=== PATIENT | female | born 1990 | race Two or more races ===

== ENCOUNTER 2020-05-25 10:52 | Outpatient (REF) | payer OTHER, SELFPAY ==
[2020-05-26 13:54] LABS: CT PCR NOT DETECTED (Not Detect.); NG PCR NOT DETECTED (Not Detect.)
[2020-05-30 15:57] LABS: HPV mRNA E6/E7 rflx Not Detected (Not Detected)
== END 2020-05-25 10:53 | disposition home or self-care (01) ==
LOC: HO.LAB 10:52
PROVIDERS: Visit Provider Advanced Practice Midwife
DX: Z01.419 Encounter for gynecological examination (general) (routine) without abnormal findings (principal); Z11.3 Encounter for screening for infections with a predominantly sexual mode of transmission; Z11.51 Encounter for screening for human papillomavirus (HPV); Z20.2 Contact with and (suspected) exposure to infections with a predominantly sexual mode of transmission; Z98.890 Other specified postprocedural states; Z87.42 Personal history of other diseases of the female genital tract
CPT/HCPCS: 87491; 87591; 87624; 87625; 88142

== ENCOUNTER 2020-06-08 11:05 | Outpatient (REF) | payer OTHER, SELFPAY ==
--- NOTE | 2020-06-08 11:18 | MM_ITS ---
EXAMINATION: MM DIAGNOSTIC DIGITAL BREAST TOMOSYNTHESIS, BILATERAL US TARGETED BREAST, LEFT US TARGETED BREAST, RIGHT CLINICAL INFORMATION: Bilateral palpable lumps. The lifetime risk of breast cancer based on the Tyrer-Cuzick Model is 7.4%. COMPARISON: Mammography: None. TECHNIQUE: Digital breast tomosynthesis is performed in both the craniocaudal and mediolateral oblique views along with computer-aided detection (CAD). Synthesized 2D images are generated from the tomosynthesis. Targeted bilateral breast ultrasound. FINDINGS: The breasts are extremely dense, which lowers the sensitivity of mammography (ACR BI-RADS breast composition Category d). There are no significant masses, abnormal calcifications, or other abnormalities. Targeted breast ultrasound bilaterally did not demonstrate any abnormal cystic or solid masses. No region of abnormal distal sound shadowing is seen. A large amount of dense breast parenchyma is present. Results are provided to the patient at time of visit by the technologist. MM/MM tomosynthesis diagnostic BI IMPRESSION: No specific mammographic or ultrasound evidence to suggest malignancy. ASSESSMENT: BI-RADS 1: Negative RECOMMENDATION: Clinical management. This patient's information was entered into a reminder system with a target due date for their next mammogram.
== END 2020-06-08 11:06 | disposition home or self-care (01) ==
LOC: HO.MAMMO 11:05
PROVIDERS: Visit Provider Advanced Practice Midwife
DX: N63.20 Unspecified lump in the left breast, unspecified quadrant (principal); N63.10 Unspecified lump in the right breast, unspecified quadrant
CPT/HCPCS: 76642; 77062; 77066

== ENCOUNTER 2020-11-01 11:16 | Outpatient (REF) | payer OTHER, SELFPAY ==
[2020-11-01 12:24] LABS: MANUAL DIFF FLAG NO
[2020-11-01 12:35] LABS: Appearance Urine HAZY; Color Urine YELLOW; Glucose Urine UA NEG (NEG); Leukocyte Esterase Urine NEG (NEG); Nitrite Urine NEG (NEG); PH 5.5 (5.0-8.0); Specific Gravity - Urine >= 1.030 (1.005-1.025); Urine Blood NEG (NEG); Urine Ketones NEG (NEG); Urine Protein NEG (NEG-TRACE)
[2020-11-01 12:42] LABS: Basophils Percent Auto 0.3 % (0-2); Eosinophils Percent Auto 0.3 % (0-4); Hematocrit 37.6 % (37-47); Hemoglobin 12.6 g/dl (12.0-16.0); Lymphocytes Percent Auto 35.3 % (20-40); Mean Corpuscular HGB Conc 33.5 g/dl (31.0-35.0); Mean Corpuscular Hemoglobin 29.7 pg (27.0-33.0); Mean Corpuscular Volume 88.7 fL (80-98); Mean Platelet Volume 10.9 fL (9.4-12.3); Monocytes Absolute Auto 0.3 X10*3/uL (0.1-1.2); Monocytes Percent Auto 10.8 % (2-11); Neutrophils Absolute Auto 1.5 X10*3/uL (2.0-8.3); Neutrophils Percent Auto 53.3 % (45-73); Platelet Count 237 X10*3/uL (160-400); Red Blood Count 4.24 X10*6/uL (4.20-5.50); Red Cell Distribution Width 11.9 % (11.0-16.0); White Blood Count 2.9 X10*3/uL (4.8-10.8)
[2020-11-01 12:58] LABS: Anion Gap 10 (12-20); Blood Urea Nitrogen 11 mg/dL (9-16); Calcium 9.5 mg/dL (8.4-10.2); Carbon Dioxide 24 mmol/L (22-29); Chloride 109 mmol/L (96-108); Cholesterol 151 mg/dL; Estimated Glomerular Filt Rate > 60; Glucose Random 103 mg/dL (60-115); Sodium 139 mmol/L (135-145)
[2020-11-01 13:56] LABS: Vitamin B12 361 pg/mL (200-900)
== END 2020-11-01 11:17 | disposition home or self-care (01) ==
LOC: HO.10HDL 11:16
PROVIDERS: Visit Provider Internal Medicine
DX: N20.0 Calculus of kidney (principal); R53.83 Other fatigue; R63.4 Abnormal weight loss
CPT/HCPCS: 36415; 80048; 81003; 82465; 82607; 84443; 85025

== ENCOUNTER 2021-05-27 13:48 | Outpatient (REF) | payer OTHER, SELFPAY ==
[2021-05-28 05:32] LABS: CT PCR NOT DETECTED (Not Detect.); NG PCR NOT DETECTED (Not Detect.)
== END 2021-05-27 13:49 | disposition home or self-care (01) ==
LOC: HO.LAB 13:48
PROVIDERS: Visit Provider Advanced Practice Midwife
DX: Z01.419 Encounter for gynecological examination (general) (routine) without abnormal findings (principal); Z20.2 Contact with and (suspected) exposure to infections with a predominantly sexual mode of transmission; Z87.42 Personal history of other diseases of the female genital tract; Z98.890 Other specified postprocedural states
CPT/HCPCS: 87491; 87591

== ENCOUNTER 2022-02-11 09:23 | Outpatient (REF) | payer OTHER, SELFPAY ==
[2022-02-11 12:21] LABS: HCG Quantitative 200 mIU/mL
== END 2022-02-11 09:24 | disposition home or self-care (01) ==
LOC: HO.LAB 09:23
PROVIDERS: PCP Internal Medicine; Visit Provider Advanced Practice Midwife
DX: Z32.01 Encounter for pregnancy test, result positive (principal)
CPT/HCPCS: 36415; 84702; 99212

== ENCOUNTER 2022-02-13 11:37 | Outpatient (REF) | payer OTHER, SELFPAY ==
[2022-02-13 13:00] LABS: HCG Quantitative 277 mIU/mL
== END 2022-02-13 11:38 | disposition home or self-care (01) ==
LOC: HO.LAB 11:37
PROVIDERS: PCP Internal Medicine; Visit Provider Advanced Practice Midwife
DX: Z32.01 Encounter for pregnancy test, result positive (principal)
CPT/HCPCS: 36415; 84702

== ENCOUNTER 2022-02-15 10:04 | Outpatient (REF) | payer OTHER, SELFPAY ==
[2022-02-15 10:55] LABS: HCG Quantitative 359 mIU/mL
== END 2022-02-15 10:05 | disposition home or self-care (01) ==
LOC: HO.LAB 10:04
PROVIDERS: PCP Internal Medicine; Visit Provider Advanced Practice Midwife
DX: O20.0 Threatened abortion (principal)
CPT/HCPCS: 36415; 84702

== ENCOUNTER 2022-02-17 12:25 | Outpatient (REF) | payer OTHER, SELFPAY ==
[2022-02-17 13:15] LABS: HCG Quantitative 506 mIU/mL
== END 2022-02-17 12:26 | disposition home or self-care (01) ==
LOC: HO.LAB 12:25
PROVIDERS: PCP Internal Medicine; Visit Provider Advanced Practice Midwife
DX: O20.0 Threatened abortion (principal)
CPT/HCPCS: 36415; 84702

== ENCOUNTER 2022-02-18 14:42 | Outpatient (REF) | payer OTHER, SELFPAY ==
--- NOTE | ~2022-02-18 | US_ITS ---
EXAMINATION: US OBSTETRICAL CLINICAL INFORMATION: Encounter for test positive results. Quants [phone] COMPARISON: None. LMP: 01/03/2022. Gestational age by maternal dates is 6 weeks and 4 days. Estimated date of delivery by maternal dates is 10/10/2022. TECHNIQUE: Transabdominal imaging of pelvis is performed FINDINGS: Transabdominal and transvaginal imaging of pelvis is performed. The uterus is anteverted with endometrial thickness of 1.36 cm. There is a small anechoic cyst seen within the endometrial canal. A gestational sac with a mean sac diameter of 0.22 cm and corresponding to 4 weeks 5 days. No pole or yolk sac seen. Right ovary measures 2.4 x 1.1 x 1.7 cm and appears unremarkable. Left ovary measures 3.4 x 1.8 x 2.6 cm. There is an anechoic cyst measuring 2.0 x 1.5 x 1.9 cm. There is free fluid in the cul-de-sac. US/US OB pelvic and transvaginal IMPRESSION: 1. Small anechoic cyst presumed gestational sac seen within the endometrial canal. The mean sac diameter corresponds to 4 weeks 5 days. No pole or yolk sac seen. 2. Small corpus luteal cyst seen in the left ovary measuring 2.0 cm. Recommend follow-up ultrasound in 7-10 days.
== END 2022-02-18 14:43 | disposition home or self-care (01) ==
LOC: HO.US 14:42
PROVIDERS: PCP Internal Medicine; Visit Provider Advanced Practice Midwife
DX: Z34.91 Encounter for supervision of normal pregnancy, unspecified, first trimester (principal); Z3A.01 Less than 8 weeks gestation of pregnancy
CPT/HCPCS: 76801; 76817

== ENCOUNTER 2022-02-28 10:51 | Outpatient (REF) | payer OTHER, SELFPAY ==
--- NOTE | ~2022-02-28 | US_ITS ---
EXAMINATION: US OBSTETRICAL ULTRASOUND CLINICAL INFORMATION: Threatened COMPARISON: 02/18/2022. LMP: 01/03/2022. Gestational age by maternal dates is 8 weeks 0 days. Estimated date of delivery by maternal dates is 10/10/2022. TECHNIQUE: Transabdominal and endovaginal sonographic evaluation of the pelvis. FINDINGS: There is an intrauterine gestational sac identified. This has a mean sac diameter of 0.3 cm, consistent with a gestational age of 4 weeks 5 days. This is unchanged from the imaging performed 10 days prior. There is no pole or yolk sac seen. MATERNAL ADNEXA: The right maternal ovary measures 2.8 x 1.6 x 2.1 cm. The left maternal ovary measures 2.6 x 2.7 x 2 cm. 1.8 cm corpus luteum noted. There is no significant maternal adnexal mass. No maternal pelvic ascites. US/US OB pelvic and transvaginal IMPRESSION: There is an intrauterine gestational sac identified, which has not changed in size prior ultrasound 10 days ago. No pole or yolk sac seen. This is consistent with a nonprogressing . Preliminary report called by the html web developer to LYDIA Draper at the provider's office at 11:47 AM on 02/28/2022.
[2022-02-28 13:02] LABS: HCG Quantitative 904 mIU/mL
== END 2022-02-28 10:52 | disposition home or self-care (01) ==
LOC: HO.US 10:51
PROVIDERS: Visit Provider Advanced Practice Midwife
DX: O20.0 Threatened abortion (principal)
CPT/HCPCS: 36415; 76801; 76817; 84702; 99212

== ENCOUNTER 2022-03-02 15:05 | Outpatient (REF) | payer OTHER, SELFPAY ==
[2022-03-02 15:49] LABS: HCG Quantitative 706 mIU/mL
== END 2022-03-02 15:06 | disposition home or self-care (01) ==
LOC: HO.LAB 15:05
PROVIDERS: PCP Internal Medicine; Visit Provider Advanced Practice Midwife
DX: O20.0 Threatened abortion (principal)
CPT/HCPCS: 36415; 84702

== ENCOUNTER 2022-03-04 08:53 | Outpatient (REF) | payer OTHER, SELFPAY ==
--- NOTE | ~2022-03-04 | US_ITS ---
EXAMINATION: US OBSTETRICAL ULTRASOUND CLINICAL INFORMATION: Pelvic ultrasound studies dated 02/28/2022 and 02/18/2022 COMPARISON: Not progressing , follow-up. LMP: 01/03/2022. TECHNIQUE: Multiple 2-D grayscale and Doppler transabdominal/transvaginal ultrasound images of the pelvis were obtained FINDINGS: The previously seen nodular Single intrauterine gestational sac is no longer visualized. The endometrial stripe is unremarkable and measures up to 0.8 cm at the level the fundus. Color Doppler showed no abnormal vascular flow. The cervix is closed without abnormality. Trace free fluid in the cul-de-sac. The right maternal ovary measures 2.8 x 1.6 x 2.1 cm. Doppler showed no abnormal vascular flow. The left maternal ovary measures 2.7 x 2.6 x 2.0 cm. Doppler showed no abnormal vascular flow. US/US OB pelvic and transvaginal IMPRESSION: The previously seen intrauterine gestational sac is no longer visualized. No other significant abnormality. Correlate with beta-hCG levels.
[2022-03-04 09:59] LABS: HCG Quantitative 156 mIU/mL
== END 2022-03-04 08:54 | disposition home or self-care (01) ==
LOC: HO.US 08:53
PROVIDERS: PCP Internal Medicine; Visit Provider Advanced Practice Midwife
DX: O03.9 Complete or unspecified spontaneous abortion without complication (principal)
CPT/HCPCS: 36415; 76801; 76817; 84702

== ENCOUNTER 2022-03-04 10:41 | Outpatient (REF) | payer OTHER, SELFPAY ==
[2022-03-04 16:49] LABS: CT PCR NOT DETECTED (Not Detect.)
[2022-03-04 16:50] LABS: NG PCR NOT DETECTED (Not Detect.)
== END 2022-03-04 10:42 | disposition home or self-care (01) ==
LOC: HO.LAB 10:41
PROVIDERS: Visit Provider Obstetrics & Gynecology
DX: O03.9 Complete or unspecified spontaneous abortion without complication (principal)
CPT/HCPCS: 87491; 87591; 99212

== ENCOUNTER 2022-03-20 07:47 | Outpatient (REF) | payer OTHER, SELFPAY ==
[2022-03-20 09:12] LABS: HCG Quantitative < 2 mIU/mL
== END 2022-03-20 07:48 | disposition home or self-care (01) ==
LOC: HO.LAB 07:47
PROVIDERS: PCP Internal Medicine; Visit Provider Obstetrics & Gynecology
DX: O03.9 Complete or unspecified spontaneous abortion without complication (principal)
CPT/HCPCS: 36415; 84702

== ENCOUNTER 2023-06-25 13:20 | Outpatient (REF) | payer OTHER, SELFPAY ==
[2023-07-02 07:54] LABS: HPV mRNA E6/E7 rflx Not Detected (Not Detected)
== END 2023-06-25 13:21 | disposition home or self-care (01) ==
LOC: HO.LNP 13:20
PROVIDERS: PCP Internal Medicine; Visit Provider Obstetrics & Gynecology
DX: Z01.419 Encounter for gynecological examination (general) (routine) without abnormal findings (principal); Z11.51 Encounter for screening for human papillomavirus (HPV); Z87.42 Personal history of other diseases of the female genital tract
CPT/HCPCS: 87624; 88142; 99395

== ENCOUNTER 2023-06-25 13:20 | Outpatient (AMB) | payer OTHER, SELFPAY ==
[2023-06-25 13:35] VITALS: BP 106/60; BMI 19.1
--- NOTE | 2023-06-25 13:35 | MHC.OFFVIS ---
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 No complaints. Last Pap/HPV was negative in 05/25 [facility] Medical History (Updated 06/25/23 @ 13:45 by Raimundo Jack MD) Hx of abnormal cervical Pap smear Kidney stone Surgical History (Updated 06/25/23 @ 13:44 by Raimundo Jack MD) History of loop electrical excision procedure (LEEP) Family History Maternal Grandmother Cancer of bone Social History Alcohol intake: current Patient Tobacco Use Status: Never used Tobacco Gender identity: Female Female Reproductive History Menstrual Age of Menarche: 10 Duration of menses: 6-7 days Date of last menstrual period: 06/21/23 control method: none Total pregnancies: 2 Full term: 1 Number of Living Children: 1 Ab spontaneous: 1 Date of last pap smear: 05/28/20 (negative) History of abnormal pap smear: Yes (2012 2010 ASCUS, 2009 SINTIA 1) Review of Systems Const All systems reviewed & are unremarkable except as noted in HPI and below Card Reports as per HPI Resp Reports as per HPI GI Reports as per HPI and Reports no additional complaints Reports as per HPI Physical Exam Vital Signs: Last Vital Signs BP 106/60 06/25/23 13:35 BMI result Body Mass Index 19.1 Const General: cooperative, healthy appearing and comfortable Chest Chest palpation & inspection: normal inspection of the chest and normal palpation of entire chest wall Breast/axilla inspection: normal inspection of the breasts and normal inspection of the axillae Breast/axilla palpation: normal palpation of the breasts, normal palpation of the axillae and no axillary lymphadenopathy Resp Effort & Inspection: normal respiratory effort Auscultation: clear to auscultation bilaterally Percussion: percussion normal Cardio Palpation: normal PMI Rate: regular rate Rhythm: regular rhythm Heart sounds: no murmurs and no rubs Peripheral pulses: Peripheral pulses 2+ throughout GI Inspection: Yes normal to inspection Palpation (GI): Soft to palpation, nontender, no guarding, not rigid and No hepatosplenomegaly present Percussion: Yes normal to percussion Auscultation: normal bowel sounds Rectal Exam - Female: deferred General: Yes bladder normal to palpation External Female Exam: No lesion Speculum Exam - Vagina: normal appearance of the vagina, normal palpation, normal vaginal discharge and not erythematous Speculum Exam - Cervix: normal appearance of the cervix and normal palpation Bimanual exam- vagina & uterus: normal bimanual exam, normal palpation, uterine size normal, bladder normal to palpation, consistency normal and normal palpation Bimanual Exam- Adnexa, other: normal adnexae, no masses and no tenderness Assessment & Plan Assessment & Plan (1) Well woman exam with routine gynecological exam: Comment: History of SINTIA 3 in 03/16 status post LEEP Code(s): Z01.419 - Encounter for gynecological examination (general) (routine) without abnormal findings Plan: Cotesting done since the patient has history of SINTIA 3 status post LEEP in 03/16 Counseled the patient about the recommended dietary allowance of 1000 mg of Calcium & 600 IU of vitamin D. The patient was instructed to perform monthly self-breast exams and to schedule an annual exam in a year; All questions answered and the patient verbalized understanding. Instructed the patient to schedule annual exam in a year Coding Level of Care Code Est Pt Prev Care 18-39y(13553) Diagnoses Well woman exam with routine gynecological exam Z01.419
== END 2023-06-25 13:54 | disposition home or self-care (01) ==
LOC: HO.HWS 13:21
PROVIDERS: PCP Internal Medicine; Visit Provider Obstetrics & Gynecology
DX: Z01.419 Encounter for gynecological examination (general) (routine) without abnormal findings (principal)
CPT/HCPCS: 99395

== ENCOUNTER 2024-08-18 12:46 | Outpatient (AMB) | payer OTHER, SELFPAY ==
--- OUTSIDE RECORDS SUMMARY | 2024-08-18 12:54 | XMS_ITS | Clinical Summary ---
Author Organization [facility] Address [address] [place] [address] Care Team Providers Care Technical Data Analyst Name Role Phone Unavailable Primary Care Provider Unavailabl e Social History Tobacco Use Types Packs/Day Years Used Date Smoking Tobacco: Never Assessed Comments Unknown Sex and Gender Information Value Date Recorded Sex Assigned at Not on file Legal Sex Female 9:03 PM EST Gender Identity Not on file Sexual Orientation Not on file Plan of Treatment Health Maintenance Due Date Last Done Comments DTaP,Tdap,and Td Vaccines (1 - Tdap) 01/04/2007 Hepatitis B Vaccines (1 of 3 - 19+ 3-dose series) 01/04/2007 Cervical Cancer Screening: P ap Smear 01/04/2009 Depression Screening 07/31/2023 HIV Screening 07/31/2023 Hepatitis C Screening 07/31/2023 Social Influencers of Health Screening 07/31/2023 COVID-19 Vaccine ( - 2023-2 5 season) 2024 Influenza Vaccine (#1) 2024 HIB Vaccines Aged Out No longer eligi ble based on patient's age to complete this topic HPV Vaccines Aged Out No longer eligi ble based on patient's age to complete this topic Hepatitis A Vaccines Aged Out No long er eligible based on patient's age to complete this topic IPV Vaccines Aged Out No longer eligi ble based on patient's age to complete this topic MMR Vaccines Aged Out No longer eligi ble based on patient's age to complete this topic Meningococcal ACWY Vaccine Aged Out N o longer eligible based on patient's age to complete this topic Meningococcal B Vacine Aged Out No lo nger eligible based on patient's age to complete this topic Pneumococcal Vaccine: Pediat rics (0 to 5 Years) and At-Risk Patients (6 to 64 Years) Aged Out No longer eligible b ased on patient's age to complete this topic RSV Immunization Patients Un latesha 20 months Aged Out No longer eligible b ased on patient's age to complete this topic Varicella Vaccines Aged Out No longer eligible based on patient's age to complete this topic
--- OUTSIDE RECORDS SUMMARY | 2024-08-18 12:54 | XMS_ITS | Clinical Summary ---
Author Organization [facility] Address [address] [place] [address] Care Team Providers Care Warehouse Team Member Name Role Phone Tian Macias PA-C Primary Care Provider [phone] Source Comments PLEASE NOTE, if this patient is a minor, it may be UNLAWFUL to discuss sensitive information that is contained in these records (such as FAMILY PLANNING, MENTAL HEALTH or SUBSTANCE ABUSE) with the minor patient's parent or other person without the patient's specific authorization.[facility] Allergies No known active allergies Medications No known medications Active Problems Problem Noted Date Diagnosed Date Renal calculi 10/20/2016 Overview (10/20/2016): 10/18/16 F/u with Dr May Silverman at [facility]. Pt has had ureteroscopy for tx of stones in the past. Gets U/s annually. S/p ureteroscopy and basketing of stones Mar 2015. U/S September 2016 shows small non-obstructing <5 mm stones, R kidney. Advised increase water, 6 glasses/day. Keep up magnesium intake, decrease meat and salt intake. Ck serum Ca and Phos, repeat renal U/S September 2017. 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 If they should occur, check [facility] History of kidney infection 05/12/2014 Overview (05/12/2014): Hospitalized for 4 days leading to sepsis Iron (Fe) deficiency anemia PPD positive Overview (06/15/2014): 07/31/03 20mm cxr for verification Immunizations Name Administration Dates Next Due DTAP (DAPTACEL),5 PERTUSSIS ANTIGENS 08/1992,05/25/1990,02/26/1990, 988,1988 HEP B, PED/ADOL 09/08/2000,04/22/2000,03/10/2000 Hib (PRP-T) 01/12/1990 History Of Varicella 12/05/1991 IPV 09/04/1992, 0,07/25/1989, 988,1988 MMR (MMR II/Priorix) 09/05/1992,04/06/1989 TDAP 02/05/2024 Td(adult),2 Lf tetanus toxoid,preservative free 03/10/2000 Family History Medical History Relation Name Comments Diabetes Maternal Aunt Heart Problems Maternal Grandfather unknown cancer Maternal Grandmother Kidney Stones Mother Thyroid Cancer Mother Relation Name Status Comments Maternal Aunt Alive Maternal Grandfather Alive Maternal Grandmother Mother Alive Social History Tobacco Use Types Packs/Day Years Used Date Smoking Tobacco: Never Smokeless Tobacco: Never Tobacco Cessation:Counseling Given: Yes Alcohol Use Standard Drinks/Week Comments Yes 1 (1 standard drink = 0.6 oz pur e alcohol) rare Social Connections Answer Date Recorded Connectedness 1 02/05/2024 Financial Resource Strain Answer Date R ecorded Financial Resource Strain 1 2023 Stress Answer Date Recorded Stress 1 02/05/2024 Physical Activity Answer Date Recorded Physical Activity 0 11/05/2023 Food Insecurity Answer Date Recorded Food 1 02/05/2024 Transportation Needs Answer Date Record ed Transportation 1 02/05/2024 Housing Stability Answer Date Recorded Housing 1 02/05/2024 Safety and Environment Answer Date Yasmany rded Safety 1 02/05/2024 Utilities Answer Date Recorded Utilities 1 02/05/2024 Employment Answer Date Recorded Employment 0 11/05/2023 Comments No Sex and Gender Information Value Date Recorded Sex Assigned at Female 02/05/2024 6:34 AM PDT Legal Sex Female 10:04 AM PST Gender Identity Female 02/05/2024 6:34 AM PDT Sexual Orientation Straight 02/05/2024 6: 34 AM PDT 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 Not on file Not on file Last Filed Vital Signs Vital Sign Reading Time Taken Comments Blood Pressure 118/86 02/05/2024 9:30 AM EDT Pulse 85 02/05/2024 9:30 AM EDT Temperature 37 ??C (98.6 ??F) 02/14/2015 1:09 PM EDT Respiratory Rate 16 02/05/2024 9:30 AM EDT Oxygen Saturation 96% 02/05/2024 9:30 AM EDT Inhaled Oxygen Concentration - - Weight 46.4 kg (102 lb 6.4 oz) 02/05/2024 9:30 A M EDT Height 157.5 cm (5' 2 ) 02/05/2024 9:30 AM EDT Body Mass Index 18.73 02/05/2024 9:30 AM EDT Plan of Treatment Upcoming Encounters Date Type Department Care Team (Late st Contact Info) Description 09/08/2024 11:00 AM EST Office Visit [facility] [address] [place] [id number] Tian Macias PA-C [address] [place] [address] Health Maintenance Due Date Last Done Comments HPV Screening 1988 Pap + HPV 1988 Annual Preventive Care Visit 05/29/2015 05/29/2014 Cervical Cancer Screening 05/05/2017 Pap Smear 05/05/2017 05/05/2014 [id number] ( season) 2024 Imm-Influenza (#1) 2024 05/12/2014 (Declined) Alcohol and Drug Screen 07/06/2024 02/05/2024 Depression Annual Screen 07/06/2024 02/05/2024 Hypertension Screening (#1) 02/04/2025 05/12/2014 Relationship Safety Screening/Counseling 02/04/2025 02/05/2024 Tobacco Screening 02/04/2025 02/05/2024 Diabetes Screening 02/04/2027 02/05/2024, 0 03/28/2015, 05/29/2014, Additional history exists Imm-DTaP/Tdap/Td (6 - Td or Tdap) 02/04/2034 02/05/2024, 03/10/2000, 09/04/1992, Additional history exists Imm-Hepatitis B Completed 09/08/2000, 04/05, 03/10/2000 HIV Screening Completed 02/05/2024 Hepatitis C Screening Completed 02/05/2024 Cervical Ablation/Cold-Knife Conization Discontinued Cervical Cryotherapy Discontinued Colposcopy Discontinued Endometrial Biopsy Discontinued Excision/Leep Discontinued HPV Genotyping Discontinued Vaginal Pap Discontinued Vulvoscopy Discontinued Procedures Procedure Name Priority Date/Time Associated Diagnosis Comments HIV 1/2 AG & AB W/RFLX (4TH GEN) Routine 02/05/2024 10:23 AM EDT Routine screening for STI (sexually transmitted infection) HEPATITIS C AB W/RFLX HCV RNA, QT, RT PCR Routine 02/05/2024 10:23 AM EDT Routine screening for STI (sexually transmitted infection) HGBA1C W/MPG Routine 02/05/2024 10:23 AM EDT Family history of diabetes mellitus from Last 3 Months or Most Recently Relevant to Health Maintenance Results * HEPATITIS C AB W/RFLX HCV RNA, QT, RT PCR (02/05/2024 10:23 AM EDT) HEPATITIS C ANTIBODY NON-REACT LEATHA NON-REACT LEATHA [facility] Comment: HCV antibody was non-reactive. There is no laboratory evidence of HCV infection. In most cases, no further action is required. However, if recent HCV exposure is suspected, a test for HCV RNA (test code 95371) is suggested. For additional information please refer to http://education.[employer]/faq/XOG02e7 (This link is being provided for informational/ educational purposes only.) Blood Blood / Unknown 02/05/2024 1 0:23 AM EDT 02/05/2024 10:24 AM EDT Narrative [facility] - 02/08/2024 1:01 PM EDT SPLIT 02/05/2024 FROM [id number] FASTING:YES us Tian Macias PA-C LAB - BLOOD DRAW Edited Resu lt - Final [facility] [address] [address], [address] [place] [address] * HIV 1/2 AG & AB W/RFLX (4TH GEN) (02/05/2024 10:23 AM EDT) HIV AG/AB, 4TH GEN NON-REAC TIVE NON-REAC TIVE [facility] Comment: HIV-1 antigen and HIV-1/HIV-2 antibodies were not detected. There is no laboratory evidence of HIV infection. PLEASE NOTE: This information has been disclosed to you from records whose confidentiality may be protected by state law. ??If your state requires such protection, then the state law prohibits you from making any further disclosure of the information without the specific written consent of the person to whom it pertains, or as otherwise permitted by law. A general authorization for the release of medical or other information is NOT sufficient for this purpose. ?? For additional information please refer to http://education.[employer]/faq/MNS573 (This link is being provided for informational/ educational purposes only.) The performance of this assay has not been clinically validated in patients less than 2 years old. Blood Blood / Unknown 02/05/2024 1 0:23 AM EDT 02/05/2024 10:24 AM EDT Narrative [facility] - 02/08/2024 1:01 PM EDT SPLIT 02/05/2024 FROM [id number] FASTING:YES us Tian Macias PA-C LAB - BLOOD DRAW Final Resul t [facility] [address] [address], [address] [place] [address] * HGBA1C W/MPG (02/05/2024 10:23 AM EDT) Pathologist [facility] HEMOGLOBIN A1C 5.1 <5.7 % of total Hgb [facility] Comment: For the purpose of screening for the presence of diabetes: <5.7% ? Consistent with the absence of diabetes 5.7-6.4% ?Consistent with increased risk for diabetes ?(prediabetes) > or =6.5% ??Consistent with diabetes This assay result is consistent with a decreased risk of diabetes. Currently, no consensus exists regarding use of hemoglobin A1c for diagnosis of diabetes in children. According to [place] Diabetes Association (ADA) guidelines, hemoglobin A1c <7.0% represents optimal control in non- diabetic patients. Different metrics may apply to specific patient populations. Standards of Medical Care in Diabetes(ADA). ?? MEAN PLASMA GLUCOSE 104 mg/dL (calc) [facility] Blood Blood / Unknown 02/05/2024 1 0:23 AM EDT 02/05/2024 10:24 AM EDT Narrative [facility] - 02/08/2024 1:01 PM EDT SPLIT 02/05/2024 FROM [id number] FASTING:YES Tian Macias PA-C LAB - BLOOD DRAW Edited Resu lt - Final [facility] [address] [address], [address] [place] [address] from Last 3 Months or Most Recently Relevant to Health Maintenance Insurance [facility] Member Subscriber Plan / Payer (Ef fective 2014-Present) Name:Candida Ricks Relation to Subscriber:Self Name:Candida Ricks Payer ID:[id number] Group ID:[id number] Type:Medicaid Address: [facility] [id number] [place] [address] [facility] Member Subscriber Plan / Payer (Ef fective 2023-Present) Name:Candida Ricks Relation to Subscriber:Self Name:Candida Ricks Payer ID:[id number] Type:Indemnity Address: [address] [address] Care Teams Warehouse Team Member Relationship Specialty Start Date End Date Tian Macias PA-C [address] [place] [address] PCP - General FAMILY MEDICINE, [place] 02/05/24
--- NOTE | 2024-08-18 12:59 | MHC.OFFVIS ---
Vital Signs 08/18/24 13:09 Height 5 ft 1 in Weight 100 lb BMI 18.9 BP 108/66 Intake Visit Reasons: Annual/DO NOT RS Destination Imagination Coordinator Required: No Information Interpreted: non-clinical & clinical Sheetrock Applicator: Sheetrock Applicator Present (Candy ALLRED) Accompanied by: Self / Same As Patient Allergies No Known Allergies Allergy (Verified 08/18/24 13:10) Is last menstrual period known: Yes Last menstrual period: 08/14/24 HPI Comments Details: Presenting for annual exam. No complaints. Last Pap/HPV was negative in 06/27 [facility] Medical History Hx of abnormal cervical Pap smear Kidney stone Surgical History (Updated 08/18/24 @ 13:03 by Raimundo Jack MD) History of loop electrical excision procedure (LEEP) Family History Maternal Grandmother Cancer of bone Social History Alcohol intake: current Patient Tobacco Use Status: Never used Tobacco Gender identity: Female Female Reproductive History Menstrual Age of Menarche: 10 Date of last menstrual period: 08/14/24 Date of last pap smear: 06/26/23 Review of Systems Const All systems reviewed & are unremarkable except as noted in HPI and below Card Reports as per HPI Resp Reports as per HPI GI Reports as per HPI and Reports no additional complaints Reports as per HPI Physical Exam Const General: cooperative, healthy appearing and comfortable Chest Chest palpation & inspection: normal inspection of the chest and normal palpation of entire chest wall Breast/axilla inspection: normal inspection of the breasts and normal inspection of the axillae Breast/axilla palpation: normal palpation of the breasts, normal palpation of the axillae and no axillary lymphadenopathy Resp Effort & Inspection: normal respiratory effort Auscultation: clear to auscultation bilaterally Percussion: percussion normal Cardio Palpation: normal PMI Rate: regular rate Rhythm: regular rhythm Heart sounds: no murmurs and no rubs Peripheral pulses: Peripheral pulses 2+ throughout GI Inspection: Yes normal to inspection Palpation (GI): Soft to palpation, nontender, no guarding, not rigid and No hepatosplenomegaly present Percussion: Yes normal to percussion Auscultation: normal bowel sounds Rectal Exam - Female: deferred General: Yes bladder normal to palpation External Female Exam: No lesion Speculum Exam - Vagina: normal appearance of the vagina, normal palpation, normal vaginal discharge and not erythematous Speculum Exam - Cervix: normal appearance of the cervix and normal palpation Bimanual exam- vagina & uterus: normal bimanual exam, normal palpation, uterine size normal, bladder normal to palpation, consistency normal and normal palpation Bimanual Exam- Adnexa, other: normal adnexae, no masses and no tenderness Assessment & Plan Assessment & Plan (1) Well woman exam with routine gynecological exam: Comment: History of SINTIA 3 in 03/16 status post LEEP Code(s): Z01.419 - Encounter for gynecological examination (general) (routine) without abnormal findings Category: Medical Plan: Cotesting done. Counseled the patient about the recommended dietary allowance of 1000 mg of Calcium & 600 IU of vitamin D. The patient was instructed to perform monthly self-breast exams and to schedule an annual exam in a year; All questions answered and the patient verbalized understanding. Instructed the patient to schedule annual exam in a year Coding Level of Care Code Est Pt Prev Care 18-39y(88707) Diagnoses Well woman exam with routine gynecological exam Z01.419
[2024-08-18 13:09] VITALS: BP 108/66; BMI 18.9
== END 2024-08-18 13:22 | disposition home or self-care (01) ==
PROVIDERS: PCP Internal Medicine; Visit Provider Obstetrics & Gynecology
DX: Z01.419 Encounter for gynecological examination (general) (routine) without abnormal findings (principal)
CPT/HCPCS: 99395; 99459

== ENCOUNTER → 2024-08-18 12:46 | Outpatient (BNVA) | payer OTHER, SELFPAY | PROVIDERS: PCP Internal Medicine; Visit Provider Obstetrics & Gynecology | DX: Z01.419 Encounter for gynecological examination (general) (routine) without abnormal findings (principal) | CPT/HCPCS: 99395; 99459 ==